=== PATIENT | male | born 1990 | race African-American/Black ===

== ENCOUNTER 2016-09-07 22:43 | Emergency (ER) | payer OTHER ==
[~2016-09-07] VITALS: Ht 177.8 cm; Wt 99.8 kg
[~2016-09-07 22:43] MED LIST: ALBUTEROL PO; ASPI81TA45 OR; LISI10TA4 OR; NORV5TAB OR; No Historical Meds; SPIR25TA2 OR
[2016-09-07] MEDS ORDERED: ATOR1TAB21 PO (23:02)
[2016-09-07] MEDS ORDERED: [UNRECOGNIZED DRUG - REMARK] (23:02)
[2016-09-07] MEDS ORDERED: ASPIRIN 325 MG TAB PO ONE (23:30)
[2016-09-07 23:36] LABS: BASO % 0.4 % (0.0-1.0); EOS % 0.5 % (0.0-3.0); LARGE UNSTAINED CELL # 0.1 K/mm3 (0.0-0.4); LARGE UNSTAINED CELL % 2.9 % (0.0-4.0); LYMPH # 1.6 K/mm3 (1.5-6.5); MEAN CORPUSCULAR HEMOGLOBIN 27.7 pg (27.0-33.0); MEAN CORPUSCULAR HGB CONC 33.7 g/dl (32.0-36.5); MEAN CORPUSCULAR VOLUME 82.1 fl (80.0-96.0); MONO # 0.4 K/mm3 (0.0-0.8); MONO % 7.4 % (0.0-5.0); NEUTROPHILS # 2.9 K/mm3 (1.8-7.7); NEUTROPHILS % 58.8 % (36.0-66.0); PLATELET COUNT, AUTOMATED 235 k/mm3 (150-450); RED CELL DISTRIBUTION WIDTH 12.5 % (11.5-14.5)
[2016-09-07 23:38] LABS: INR 0.99
[2016-09-07 23:43] LABS: ABG BASE EXCESS 3.1 (-2.0-2.0); ABG HCO3 26.1 MEQ/L (22.0-26.0); ABG PARTIAL PRESSURE CO2 35.2 mmHg (35.0-45.0); ABG PARTIAL PRESSURE O2 109.1 mmHg (75.0-100.0); ABG STANDARD HCO3 27.2 MEQ/L (22.0-26.0); ABG TOTAL CO2 27.2 MEQ/L (22.0-29.0); ABG pH (ARTERIAL) 7.488 UNITS (7.350-7.450)
[2016-09-07 23:47] LABS: ALBUMIN 4.2 GM/DL (3.2-5.2); ALBUMIN/GLOBULIN RATIO 1.08 (1.00-1.93); BILIRUBIN,DIRECT 0.3 MG/DL (0.0-0.2); BILIRUBIN,TOTAL 1.9 MG/DL (0.2-1.0); TOTAL PROTEIN 8.1 GM/DL (6.4-8.2)
[2016-09-07 23:50] LABS: ANION GAP 5 MEQ/L (8-16); BLOOD UREA NITROGEN 13 MG/DL (7-18); CARBON DIOXIDE LEVEL 36 MEQ/L (21-32); CHLORIDE LEVEL 97 MEQ/L (98-107); CREATININE FOR GFR 1.14 MG/DL (0.70-1.30); GLOMERULAR FILTRATION RATE > 60.0 (>60); GLUCOSE, FASTING 93 MG/DL (70-105); SODIUM LEVEL 138 MEQ/L (136-145)
[2016-09-08] MEDS ORDERED: ISOVUE-370 76% 100ML VIAL (Q9967) As Ordered ONE (00:50)
--- NOTE | 2016-09-08 01:40 | REPUSA ---
CT angiogram of the chest Clinical statement: Dyspnea. Technique: Multiple axial CT images were obtained from the thoracic inlet through the upper abdomen a fter a bolus administration of nonionic intravenous contrast. Coronal and sagittal reconstructions we re also obtained. Comparison: 07/06/2008. Findings: The pulmonary arteries are well-opacified with contrast, with no intraluminal filling defec ts to suggest embolism. The thoracic aorta is unremarkable. Thyroid gland is within normal limits. Th ere is no thoracic lymphadenopathy. There are no pericardial or pleural effusions. The lungs are summer r. Limited imaging of the upper abdomen is unremarkable. There are no suspicious osseous lesions. Impression: Unremarkable CT examination of the chest. No evidence of pulmonary embolism.
[2016-09-08 03:35] LABS: METHADONE URINE NEGATIVE (NEGATIVE)
[2016-09-08] MEDS ORDERED: cloNIDine 0.2 MG TAB PO ONE (03:45)
[2016-09-08 03:49] VITALS: BP 178/109
[2016-09-08] MEDS ORDERED: GI COCKTAIL 50ML BTL(HYOSCYAMINE/MAALOX/LIDOCAINE VISCOUS)(1:3:1) As Ordered ONE (03:52)
[2016-09-08] MEDS ORDERED: GI COCKTAIL 50ML BTL(HYOSCYAMINE/MAALOX/LIDOCAINE VISCOUS)(1:3:1) PO ONE (04:00)
[2016-09-08 04:32] VITALS: BP 158/95
--- NOTE | 2016-09-08 08:38 | ECGEPIP ---
Stationary ECG Study [facility] - ED Test Date: 2016-09-07 Pat Name: MARQUIS GILLIAM Department: Room: - Gender: M Belt Notcher: sun : 1990 Requested By: MATILDA ERWIN Order Number: [id number] Reading MD: Tara Rinaldi Measurements Intervals [place] Rate: 78 P: 39 ND: 140 QRS: 50 QRSD: 89 T: -23 QT: 342 QTc: 392 Interpretive Statements SINUS RHYTHM NONSPECIFIC ST & T-WAVE ABNORMALITY NO PRIOR FOR COMPARISON Electronically Signed On 09-08-2016 8:38:08 EDT by Tara Rinaldi
== END 2016-09-08 04:35 | disposition home or self-care (01) ==
LOC: M ED 23:39
DX: R07.89 Other chest pain (principal); R06.4 Hyperventilation; F12.10 Cannabis abuse, uncomplicated; I10 Essential (primary) hypertension; F17.200 Nicotine dependence, unspecified, uncomplicated; Z79.899 Other long term (current) drug therapy

== ENCOUNTER 2016-12-15 20:18 | Emergency (ER) | payer OTHER ==
[~2016-12-15] VITALS: Ht 177.8 cm; Wt 98.2 kg
[~2016-12-15 20:18] MED LIST changes: +ATOR1TAB21 PO; +[UNRECOGNIZED DRUG - REMARK]
[2016-12-15] MEDS ORDERED: LISI10TA4 PO (20:37)
[2016-12-15 21:56] VITALS: BP 163/104
--- NOTE | 2016-12-16 07:43 | REP ---
Clinical: Trauma. Technique: AP, lateral views of the right knee Findings: The osseous structures and joint spaces are intact and normal. There is no evidence for acute fracture or dislocation. No joint effusion is appreciated. Surrounding soft tissues are unremarkable. No subcutaneous emphysema or radiodense foreign body. Impression: No acute fracture or dislocation. Signed by Torito Arteaga MD 12/16/2016 07:35 A
== END 2016-12-15 22:10 | disposition home or self-care (01) ==
LOC: M ED 20:18
DX: S86.311A Strain of muscle(s) and tendon(s) of peroneal muscle group at lower leg level, right leg, initial encounter (principal); X50.1XXA Overexertion from prolonged static or awkward postures, initial encounter; Y92.89 Other specified places as the place of occurrence of the external cause; Y93.89 Activity, other specified; Y99.8 Other external cause status; I10 Essential (primary) hypertension; Z79.899 Other long term (current) drug therapy

== ENCOUNTER → 2016-12-30 | Outpatient (REF) | payer OTHER ==
[~2016-12-30] MED LIST changes: +LISI10TA4 PO
== END ==
LOC: M SFHCPLAZ 11:25
PROVIDERS: ATTEND Student in an Organized Health Care Education/Training Program
DX: R30.0 Dysuria (principal)

== ENCOUNTER → 2017-01-07 | Outpatient (CLI) | payer OTHER ==
[2017-01-07 15:47] LABS: ALBUMIN/GLOBULIN RATIO 1.05 (1.00-1.93); ALKALINE PHOSPHATASE 61 U/L (45-117); ALT/SGPT 41 U/L (12-78); ANION GAP 5 MEQ/L (8-16); AST/SGOT 29 U/L (15-37); BILIRUBIN,TOTAL 2.7 MG/DL (0.2-1.0); BLOOD UREA NITROGEN 12 MG/DL (7-18); CARBON DIOXIDE LEVEL 33 MEQ/L (21-32); CHLORIDE LEVEL 102 MEQ/L (98-107); CREATININE FOR GFR 1.04 MG/DL (0.70-1.30); GLOMERULAR FILTRATION RATE > 60.0 (>60); GLUCOSE, FASTING 79 MG/DL (70-105); POTASSIUM SERUM 3.4 MEQ/L (3.5-5.1); SODIUM LEVEL 140 MEQ/L (136-145); TOTAL PROTEIN 7.8 GM/DL (6.4-8.2)
== END ==
LOC: M LAB 12:37
PROVIDERS: ATTEND Student in an Organized Health Care Education/Training Program
DX: I10 Essential (primary) hypertension (principal)

== ENCOUNTER 2020-03-27 13:10 | Emergency (ER) | payer MEDICAID, OTHER ==
[~2020-03-27] VITALS: Ht 177.8 cm; Wt 108.4 kg
[2020-03-27] MEDS ORDERED: EZET10TA21 PO (13:32)
[2020-03-27] MEDS ORDERED: DOCU100C16 PO (13:32)
[2020-03-27] MEDS ORDERED: ASPI81CH33 PO (13:32)
[2020-03-27 14:48] LABS: BASO % 0.7 % (0.0-1.0); EOS # 0.1 10^3/uL (0.0-0.5); EOS % 2.8 % (0.0-3.0); HEMATOCRIT 48.1 % (42.0-52.0); HEMOGLOBIN 15.9 g/dl (13.5-17.5); LYMPH # 1.5 10^3/uL (1.5-5.0); LYMPH % 34.9 % (24.0-44.0); MEAN CORPUSCULAR HGB CONC 33.1 g/dl (32.0-36.5); MEAN CORPUSCULAR VOLUME 81.8 fl (80.0-96.0); MONO # 0.4 10^3/uL (0.0-0.8); MONO % 8.7 % (0.0-5.0); NEUTROPHILS # 2.3 10^3/uL (1.5-8.5); NEUTROPHILS % 52.7 % (36.0-66.0); PLATELET COUNT, AUTOMATED 236 10^3/uL (150-450); RED BLOOD COUNT 5.88 10^6/uL (4.30-6.10); WHITE BLOOD COUNT 4.3 10^3/uL (4.0-10.0)
[2020-03-27 15:13] LABS: ALBUMIN 4.7 GM/DL (3.2-5.2); ALT/SGPT 32 U/L (12-78); BILIRUBIN,DIRECT 0.2 MG/DL (0.0-0.2); BILIRUBIN,TOTAL 1.5 MG/DL (0.2-1.0); BLOOD UREA NITROGEN 11 MG/DL (7-18); CARBON DIOXIDE LEVEL 35 MEQ/L (21-32); CHLORIDE LEVEL 103 MEQ/L (98-107); GLOMERULAR FILTRATION RATE > 60.0 (>60); GLUCOSE, FASTING 85 MG/DL (70-100); LIPASE 122 U/L (73-393); POTASSIUM SERUM 3.7 MEQ/L (3.5-5.1); SODIUM LEVEL 139 MEQ/L (136-145); TOTAL PROTEIN 8.7 GM/DL (6.4-8.2)
[2020-03-27] MEDS ORDERED: ONDANSETRON 4MG/2ML VIAL IV ONE (15:45)
[2020-03-27] MEDS ORDERED: NS 1,000 ML IV ONE (15:45)
[2020-03-27] MEDS ORDERED: KETOROLAC 30 MG/ML 1ML VIAL IV ONE (15:45)
[2020-03-27] MEDS ORDERED: ISOVUE-370 76% 100ML VIAL As Ordered ONE (15:50)
--- NOTE | 2020-03-27 16:26 | REP ---
INDICATION: bilateral flank, LLQ pain COMPARISON: None. TECHNIQUE: CT Scan of the abdomen and pelvis was performed with intravenous administration of 100 cc of Isovue 370, without oral contrast. FINDINGS: Lung bases: Unremarkable. Liver: Normal Gallbladder: Unremarkable. Spleen: Normal. Adrenals: Normal. Pancreas: Normal. Kidneys: Normal. Small and large bowel: Unremarkable. Free fluid: None. Abdominal aorta: No aneurysm or dissection. Adenopathy: None. Appendix: Not inflamed. Osseous structures: Unremarkable. Pelvis: No mass. IMPRESSION: Negative CT abdomen and pelvis. <Electronically signed by Elliot English > 03/27/20 [id number]
[2020-03-27 17:22] VITALS: BP 151/98
== END 2020-03-27 17:24 | disposition home or self-care (01) ==
LOC: M ED 13:10
DX: R10.9 Unspecified abdominal pain (principal); R10.32 Left lower quadrant pain; I10 Essential (primary) hypertension; Z98.61 Coronary angioplasty status; F17.200 Nicotine dependence, unspecified, uncomplicated; Z79.82 Long term (current) use of aspirin; Z79.899 Other long term (current) drug therapy
CPT/HCPCS: 74177; 80048; 80076; 81001; 83690; 85025; 96361; 96374; 96375; 99284; J1885; J2405; Q9967

== ENCOUNTER 2020-04-12 23:08 | Emergency (ER) | payer MEDICAID ==
[~2020-04-12] VITALS: Ht 177.8 cm; Wt 104.5 kg
[~2020-04-12 23:08] MED LIST changes: +ASPI81CH33 PO; +DOCU100C16 PO; +EZET10TA21 PO
[2020-04-12] MEDS ORDERED: METO1TAB32 PO (23:20)
[2020-04-13 02:33] VITALS: BP 112/53
[2020-04-13] MEDS ORDERED: KETO10TAB PO (05:11)
[2020-04-13] MEDS ORDERED: AUGM875T28 PO (05:11)
[2020-04-13] MEDS ORDERED: KETOROLAC 30 MG/ML 1ML VIAL IM ONE (05:15)
[2020-04-13] MEDS ORDERED: AUGMENTIN 875 MG TAB PO ONE (05:15)
== END 2020-04-13 05:41 | disposition home or self-care (01) ==
LOC: M ED 23:08
DX: K04.7 Periapical abscess without sinus (principal); E78.00 Pure hypercholesterolemia, unspecified; I10 Essential (primary) hypertension; Z79.899 Other long term (current) drug therapy; Z79.82 Long term (current) use of aspirin

== ENCOUNTER → 2020-06-23 | Outpatient (CLI) | payer MEDICAID, OTHER ==
[~2020-06-23] MED LIST changes: +AUGM875T28 PO; +KETO10TAB PO; +LISI10TA22 PO; -LISI10TA4 PO; +METO1TAB32 PO
[2020-06-23 13:11] LABS: ALBUMIN 4.5 GM/DL (3.2-5.2); ALT/SGPT 42 U/L (12-78); BILIRUBIN,TOTAL 0.8 MG/DL (0.2-1.0); BLOOD UREA NITROGEN 17 MG/DL (7-18); CALCIUM LEVEL 10.2 MG/DL (8.5-10.1); CARBON DIOXIDE LEVEL 37 MEQ/L (21-32); CHLORIDE LEVEL 99 MEQ/L (98-107); CREATININE FOR GFR 1.26 MG/DL (0.70-1.30); GLOMERULAR FILTRATION RATE > 60.0 (>60); GLUCOSE, FASTING 104 MG/DL (70-100); POTASSIUM SERUM 3.2 MEQ/L (3.5-5.1); SODIUM LEVEL 139 MEQ/L (136-145); TOTAL PROTEIN 8.3 GM/DL (6.4-8.2)
== END ==
LOC: M WUC 11:11
PROVIDERS: ATTEND Nurse Practitioner Family
DX: E87.6 Hypokalemia (principal)

== ENCOUNTER → 2020-08-06 | Outpatient (CLI) | payer OTHER | LOC: M LABSMTC 10:10 | PROVIDERS: ATTEND Anesthesiology | DX: Z01.818 Encounter for other preprocedural examination (principal); Z11.52 Encounter for screening for COVID-19 ==

== ENCOUNTER 2020-08-11 07:50 | Day surgery (SDC) | payer OTHER ==
[~2020-08-11] VITALS: Ht 177.8 cm; Wt 103.3 kg
[~2020-08-11 07:50] MED LIST changes: +ASPI81TA26 PO; +CHLO125TA PO; +DOK1CAP7 PO; +LIDOCAINE 2% 100MG/5ML SDV (FOR ANES.) As Ordered ONE; +MIRA3350 PO; +NS 1,000 ML IV ONE; +OMEP-221 PO; +propofoL 200 MG/20 ML VIAL As Ordered ONE
[2020-08-11] MEDS ORDERED: fentaNYL 100 MCG/2 ML INJECTION (J3010) As Ordered ONE (09:09)
--- NOTE | 2020-08-11 09:24 | ROOR ---
Patient Name: Marquis Jolley Procedure Date: 08/11/2020 8:50 AM Date of : 1990 Age: 30 Room: [facility] Gender: Male Note Status: Finalized Procedure: Colonoscopy Indications: Hematochezia, Change in bowel habits Providers: Gamal Chambers MD Referring MD: Alice BEAR Requesting Provider: Medicines: Monitored Anesthesia Care Complications: No immediate complications. Procedure: Pre-Anesthesia Assessment: - Prior to the procedure, a History and Physical was performed, and patient medications and allergies were reviewed. The patient is competent. The risks and benefits of the procedure and the sedation options and risks were discussed with the patient. All questions were answered and informed consent was obtained. Patient identification and proposed procedure were verified by the physician, the nurse and the anesthesiologist in the procedure room. Mental Status Examination: normal. Airway Examination: normal oropharyngeal airway and neck mobility. Respiratory Examination: clear to auscultation. CV Examination: normal. Prophylactic Antibiotics: The patient does not require prophylactic antibiotics. Prior Anticoagulants: The patient has taken no previous anticoagulant or antiplatelet agents. ASA Grade Assessment: II - A patient with mild systemic disease. After reviewing the risks and benefits, the patient was deemed in satisfactory condition to undergo the procedure. The anesthesia plan was to use monitored anesthesia care (MAC). Immediately prior to administration of medications, the patient was re-assessed for adequacy to receive sedatives. The heart rate, respiratory rate, oxygen saturations, blood pressure, adequacy of pulmonary ventilation, and response to care were monitored throughout the procedure. The physical status of the patient was re-assessed after the procedure. The Colonoscope was introduced through the anus and advanced to the terminal ileum, with identification of the appendiceal orifice and IC valve. The colonoscopy was performed without difficulty. The patient tolerated the procedure well. The quality of the bowel preparation was good. The terminal ileum, ileocecal valve, appendiceal orifice, and rectum were photographed. Scope insertion time was 2 minutes. Scope withdrawal time was 8 minutes. The total duration of the procedure was 10 minutes. Findings: The perianal and digital rectal examinations were normal. The terminal ileum appeared normal. Scattered and patchy mild inflammation characterized by erythema and granularity was found in the sigmoid colon. Biopsies were taken with a cold forceps for histology. Verification of patient identification for the specimen was done by the physician and nurse using the patient's name, date and medical record number. Estimated blood loss was minimal. Non-bleeding external and internal hemorrhoids were found during retroflexion. The hemorrhoids were large. Impression: - The examined portion of the ileum was normal. - Scattered and patchy mild inflammation was found in the sigmoid colon secondary to colitis. Biopsied. - Non-bleeding external and internal hemorrhoids. Recommendation: - Patient has a contact number available for emergencies. The signs and symptoms of potential delayed complications were discussed with the patient. Return to normal activities tomorrow. Written discharge instructions were provided to the patient. - High fiber diet. - Continue present medications. - Use fiber, for example Citrucel, Fibercon, Konsyl or Metamucil. - Preparation H suppository: Insert rectally daily for 5 days. - Await pathology results. - Repeat colonoscopy at age 48 for screening purposes. - Telephone GI clinic for pathology results in 2 weeks. - Return to primary care physician. Procedure Code(s): --- Professional --- 12635, Colonoscopy, flexible; with biopsy, single or multiple Diagnosis Code(s): --- Professional --- K64.8, Other hemorrhoids K52.9, Noninfective gastroenteritis and colitis, unspecified K92.1, Melena (includes Hematochezia) R19.4, Change in bowel habit CPT copyright 2019 [employer]. All rights reserved. The codes documented in this report are preliminary and upon digital editor review may be revised to meet current compliance requirements. Gamal Chambers MD Gamal Chambers MD 08/11/2020 9:24:22 AM Electronically signed by Gamal Chambers MD Number of Addenda: 0 Note Initiated On: 08/11/2020 8:50 AM Estimated Blood Loss: Estimated blood loss was minimal.
[2020-08-11 09:45] VITALS: BP 134/87
== END 2020-08-11 09:58 | disposition home or self-care (01) ==
LOC: M OPP 07:50
PROVIDERS: ATTEND Internal Medicine Gastroenterology
DX: K64.8 Other hemorrhoids (principal); R19.4 Change in bowel habit; K92.1 Melena; F17.210 Nicotine dependence, cigarettes, uncomplicated; Z79.82 Long term (current) use of aspirin; Z79.899 Other long term (current) drug therapy
CPT/HCPCS: 45380; 88305; J3010

== ENCOUNTER → 2021-03-19 | Outpatient (CLI) | payer OTHER ==
[~2021-03-19] MED LIST changes: +DOK1CAP4 PO; -DOK1CAP7 PO; -LIDOCAINE 2% 100MG/5ML SDV (FOR ANES.) As Ordered ONE; -NS 1,000 ML IV ONE; -propofoL 200 MG/20 ML VIAL As Ordered ONE
== END ==
LOC: M LABSMTC 13:58
PROVIDERS: ATTEND Family Medicine
DX: U07.1 COVID-19 (principal)
CPT/HCPCS: C9803; U0003

== ENCOUNTER → 2022-10-15 | Outpatient (CLI) | payer OTHER ==
[~2022-10-15] MED LIST changes: -OMEP-221 PO; +OMEP40CA5 PO
[2022-10-15 12:07] LABS: BASO % 0.5 % (0.0-1.0); EOS # 0.1 10^3/uL (0.0-0.5); EOS % 2.1 % (0.0-3.0); HEMATOCRIT 46.2 % (42.0-52.0); HEMOGLOBIN 15.8 g/dl (13.5-17.5); LYMPH # 2.3 10^3/uL (1.5-5.0); LYMPH % 40.6 % (24.0-44.0); MEAN CORPUSCULAR HEMOGLOBIN 27.9 pg (27.0-33.0); MEAN CORPUSCULAR HGB CONC 34.2 g/dl (32.0-36.5); MEAN CORPUSCULAR VOLUME 81.5 fl (80.0-96.0); MONO # 0.5 10^3/uL (0.0-0.8); MONO % 8.6 % (2.0-8.0); NEUTROPHILS # 2.7 10^3/uL (1.5-8.5); PLATELET COUNT, AUTOMATED 308 10^3/uL (150-450); RED BLOOD COUNT 5.67 10^6/uL (4.30-6.10); WHITE BLOOD COUNT 5.7 10^3/uL (4.0-10.0)
[2022-10-15 12:22] LABS: APPEARANCE, URINE CLEAR (CLEAR); BACTERIA, URINE AUTO NEGATIVE (NEGATIVE); BILIRUBIN, URINE AUTO NEGATIVE (NEGATIVE); BLOOD, URINE BLOOD NEGATIVE (NEGATIVE); COLOR, URINE YELLOW (YELLOW); GLUCOSE, URINE (UA) AUTO NEGATIVE (NEGATIVE); KETONE, URINE AUTO NEGATIVE (NEGATIVE); LEUKOCYTE ESTERASE, URINE AUTO NEGATIVE (NEGATIVE); MUCUS, URINE SMALL (NEGATIVE); NITRITE, URINE AUTO NEGATIVE (NEGATIVE); PROTEIN, URINE AUTO 1+ mg/dL (NEGATIVE); RBC, URINE AUTO 0 /HPF (0-3); SPECIFIC GRAVITY URINE AUTO 1.023 (1.002-1.035); SQUAMOUS EPITHELIAL CELL UR AU 0 /HPF (0-6); WBC, URINE AUTO 3 /HPF (0-3)
[2022-10-15 12:38] LABS: HEMOGLOBIN A1c 4.6 % (4.0-6.0)
[2022-10-15 12:39] LABS: IRON (FE) 80 UG/DL (65-175); PERCENT SATURATION 22.7 % (19.7-50.0); TOTAL IRON BINDING CAPACITY 353 UG/DL (250-425)
[2022-10-15 12:48] LABS: ALBUMIN 4.2 G/DL (3.2-5.2); ALKALINE PHOSPHATASE 80 U/L (46-116); ALT/SGPT 40 U/L (7.0-40); AST/SGOT 27 U/L (<34); BILIRUBIN,TOTAL 2.5 MG/DL (0.3-1.2); BLOOD UREA NITROGEN 13 MG/DL (9-23); CALCIUM LEVEL 10.3 MG/DL (8.5-10.1); CARBON DIOXIDE LEVEL 33 MMOL/L (20-31); CHLORIDE LEVEL 103 MMOL/L (98-107); CHOLESTEROL LEVEL 240 MG/DL (<200); CHOLESTEROL RISK RATIO 4.66 (<5); CREATININE FOR GFR 0.97 MG/DL (0.70-1.30); FERRITIN 175.7 NG/ML (10.5-307.3); FOLATE 16.4 NG/ML (>5.4); FREE T4 1.18 NG/DL (0.89-1.76); GLOMERULAR FILTRATION RATE > 60.0 (>60); GLUCOSE, FASTING 87 MG/DL (60-100); HDL CHOLESTEROL 51.5 MG/DL (>40); LDL CHOLESTEROL 164.3 MG/DL (<100); NON-HDL-C 188.5 MG/DL; POTASSIUM SERUM 3.1 MMOL/L (3.5-5.1); SODIUM LEVEL 138 MMOL/L (136-145); THYROID STIMULATING HORMONE 1.027 uIU/ML (0.55-4.78); TOTAL 25(OH) VITAMIN D 11.1 NG/ML (20.0-100.0); TOTAL PROTEIN 7.5 G/DL (5.7-8.2); TRIGLYCERIDES LEVEL 121 MG/DL (<150); VITAMIN B12 LEVEL 516 PG/ML (211-911)
== END ==
LOC: M LAB 11:23
PROVIDERS: ATTEND Physician Assistant
DX: F41.9 Anxiety disorder, unspecified (principal)

== ENCOUNTER → 2022-12-05 | Outpatient (CLI) | payer OTHER ==
[2022-12-05 18:00] LABS: ALBUMIN 4.1 G/DL (3.2-5.2); ALKALINE PHOSPHATASE 100 U/L (46-116); ALT/SGPT 70 U/L (7.0-40); AST/SGOT 32 U/L (<34); BILIRUBIN,DIRECT 0.5 MG/DL (<0.4); BILIRUBIN,TOTAL 1.6 MG/DL (0.3-1.2); BLOOD UREA NITROGEN 14 MG/DL (9-23); CALCIUM LEVEL 9.7 MG/DL (8.5-10.1); CARBON DIOXIDE LEVEL 35 MMOL/L (20-31); CHLORIDE LEVEL 102 MMOL/L (98-107); CREATININE FOR GFR 0.93 MG/DL (0.70-1.30); GLOMERULAR FILTRATION RATE > 60.0 (>60); GLUCOSE, FASTING 102 MG/DL (60-100); MAGNESIUM LEVEL 1.7 MG/DL (1.8-2.4); POTASSIUM SERUM 3.1 MMOL/L (3.5-5.1); SODIUM LEVEL 143 MMOL/L (136-145); TOTAL PROTEIN 7.3 G/DL (5.7-8.2)
== END ==
LOC: M LAB 16:30
PROVIDERS: ATTEND Physician Assistant
DX: E87.6 Hypokalemia (principal); E80.6 Other disorders of bilirubin metabolism

== ENCOUNTER → 2023-02-14 | Day surgery (SDC) | payer OTHER ==
[~2023-02-14] VITALS: Ht 177.8 cm; Wt 110.2 kg
[~2023-02-14] MED LIST changes: +AMLO1TAB24 PO; +ATOR80TA59 PO; +HYDR-3363 PO; +LIDOCAINE 2% 100MG/5ML SDV (FOR ANES.) As Ordered ONE; +METO1TAB87 PO; +MULT-90 PO; +NS 1,000 ML IV ONE; +SERT50TA29 PO; +fentaNYL 100 MCG/2 ML INJECTION As Ordered ONE; +propofoL 200 MG/20 ML VIAL As Ordered ONE
[2023-02-14 15:21] VITALS: TEMP 96.4
[2023-02-14 15:43] VITALS: BP 142/81; O2SAT 99
== END | disposition home or self-care (01) ==
LOC: M OPP 13:29
PROVIDERS: ATTEND Internal Medicine Gastroenterology
DX: K29.70 Gastritis, unspecified, without bleeding (principal); K20.90 Esophagitis, unspecified without bleeding; K44.9 Diaphragmatic hernia without obstruction or gangrene; F17.200 Nicotine dependence, unspecified, uncomplicated; Z79.02 Long term (current) use of antithrombotics/antiplatelets; Z79.82 Long term (current) use of aspirin; Z79.899 Other long term (current) drug therapy
CPT/HCPCS: 43239; 88305; J3010

== ENCOUNTER 2024-01-10 02:15 | Emergency (ER) | payer OTHER ==
[~2024-01-10] VITALS: Ht 177.8 cm; Wt 109.1 kg
[~2024-01-10 02:15] MED LIST changes: -LIDOCAINE 2% 100MG/5ML SDV (FOR ANES.) As Ordered ONE; -NS 1,000 ML IV ONE; -fentaNYL 100 MCG/2 ML INJECTION As Ordered ONE; -propofoL 200 MG/20 ML VIAL As Ordered ONE
[2024-01-10 02:58] LABS: HEMOGLOBIN 16.2 g/dl (13.5-17.5); MEAN CORPUSCULAR HEMOGLOBIN 28.6 pg (27.0-33.0); MEAN CORPUSCULAR HGB CONC 33.8 g/dl (32.0-36.5); MEAN CORPUSCULAR VOLUME 84.7 fl (80.0-96.0); PLATELET COUNT, AUTOMATED 293 10^3/uL (150-450); RED BLOOD COUNT 5.67 10^6/uL (4.30-6.10); WHITE BLOOD COUNT 5.4 10^3/uL (4.0-10.0)
[2024-01-10] MEDS: METOPROLOL TART 25 MG TABLET PO ONE (03:02)
[2024-01-10 03:03] VITALS: BP 198/105
[2024-01-10] MEDS: amLODIPine 5 MG TAB PO ONE (03:03)
[2024-01-10 03:28] LABS: AMPHETAMINES LEVEL URINE NEGATIVE (NEGATIVE); BARBITURATES URINE NEGATIVE (NEGATIVE); BENZODIAZEPINES URINE NEGATIVE (NEGATIVE); COCAINE METABOLITE URINE NEGATIVE (NEGATIVE); METHADONE URINE NEGATIVE (NEGATIVE); OPIATES URINE NEGATIVE (NEGATIVE); PHENCYCLIDINE URINE NEGATIVE (NEGATIVE)
[2024-01-10 03:29] LABS: CANNABINOIDS URINE POSITIVE (NEGATIVE)
[2024-01-10 03:36] LABS: ETHYL ALCOHOL (ETHANOL) 0.254 % (0.000-0.010)
[2024-01-10 03:38] LABS: SALICYLATE LEVEL < 3.0 MG/DL (<30)
[2024-01-10 03:39] LABS: ALBUMIN 4.2 G/DL (3.2-5.2); ALKALINE PHOSPHATASE 88 U/L (46-116); ALT/SGPT 44 U/L (7.0-40); AST/SGOT 35 U/L (<34); BILIRUBIN,DIRECT 0.3 MG/DL (<0.4); BLOOD UREA NITROGEN 13 MG/DL (9-23); CALCIUM LEVEL 9.5 MG/DL (8.5-10.1); CARBON DIOXIDE LEVEL 29 MMOL/L (20-31); CHLORIDE LEVEL 106 MMOL/L (98-107); CREATININE FOR GFR 1.12 MG/DL (0.70-1.30); GLOMERULAR FILTRATION RATE > 60.0 (>60); GLUCOSE, FASTING 95 MG/DL (60-100); POTASSIUM SERUM 3.1 MMOL/L (3.5-5.1); SODIUM LEVEL 142 MMOL/L (136-145)
[2024-01-10 03:41] LABS: THYROID STIMULATING HORMONE 0.856 uIU/ML (0.55-4.78)
[2024-01-10] MEDS ORDERED: MED REC CURRENTLY UNOBTAINABLE XX SCH (05:30)
[2024-01-10 12:56] VITALS: BP 117/87; TEMP 98; O2SAT 97
== END 2024-01-10 12:58 | disposition home or self-care (01) ==
LOC: M ED 02:15
DX: F10.120 Alcohol abuse with intoxication, uncomplicated (principal); Z79.1 Long term (current) use of non-steroidal anti-inflammatories (NSAID); Z79.810 Long term (current) use of selective estrogen receptor modulators (SERMs); Z79.899 Other long term (current) drug therapy

== ENCOUNTER 2024-11-17 18:45 | Emergency (ER) | payer OTHER, SELFPAY ==
[~2024-11-17] VITALS: Ht 177.8 cm; Wt 102.7 kg
[2024-11-17 19:15] LABS: BASO # 0.0 10^3/uL (0.0-0.2); BASO % 0.5 % (0.0-1.0); EOS # 0.2 10^3/uL (0.0-0.5); EOS % 3.5 % (0.0-3.0); LYMPH # 2.0 10^3/uL (1.5-5.0); LYMPH % 35.4 % (24.0-44.0); MONO # 0.6 10^3/uL (0.0-0.8); MONO % 9.7 % (2.0-8.0); NEUTROPHILS # 2.9 10^3/uL (1.5-8.5); NEUTROPHILS % 50.7 % (36.0-66.0); PLATELET COUNT, AUTOMATED 284 10^3/uL (150-450)
[2024-11-17 19:44] LABS: CPK CREATINE PHOSPHOKINASE 266.0 U/L (46-171)
[2024-11-17 19:45] LABS: ALT/SGPT 40.0 U/L (7.0-40); AST/SGOT 31.0 U/L (<34); CALCIUM LEVEL 9.1 MG/DL (8.5-10.1); CARBON DIOXIDE LEVEL 32.0 MMOL/L (20-31); CHLORIDE LEVEL 102.0 MMOL/L (98-107); CK-MB VALUE MASS 1.3 NG/ML (<3.6); CREATININE FOR GFR 1.32 MG/DL (0.70-1.30); GLOMERULAR FILTRATION RATE 71.7 (>60); MB/CK RELATIVE INDEX 0.48 (< OR =4); POTASSIUM SERUM 3.3 MMOL/L (3.5-5.1); SODIUM LEVEL 142.0 MMOL/L (136-145)
[2024-11-17 19:47] LABS: FREE T4 1.11 NG/DL (0.89-1.76)
[2024-11-18 00:46] LABS: CK-MB VALUE MASS 1.1 NG/ML (<3.6)
[2024-11-18 00:47] LABS: CPK CREATINE PHOSPHOKINASE 252.0 U/L (46-171); MB/CK RELATIVE INDEX 0.43 (< OR =4)
[2024-11-18 01:34] VITALS: BP 150/84; TEMP 97.3; O2SAT 99
== END 2024-11-18 01:35 | disposition home or self-care (01) ==
LOC: M ED 18:45
DX: R07.9 Chest pain, unspecified (principal); R00.0 Tachycardia, unspecified; Z79.1 Long term (current) use of non-steroidal anti-inflammatories (NSAID); Z79.899 Other long term (current) drug therapy; Z79.810 Long term (current) use of selective estrogen receptor modulators (SERMs)

== ENCOUNTER 2025-01-17 06:04 | Emergency (ER) | payer SELFPAY ==
[~2025-01-17] VITALS: Ht 177.8 cm; Wt 103.0 kg
[~2025-01-17 06:04] MED LIST changes: -EZET10TA21 PO; +EZET10TA57 PO
[2025-01-17 06:18] VITALS: BP 165/109; TEMP 98.1; O2SAT 97
== END 2025-01-17 06:55 | disposition left against medical advice (07) ==
LOC: M ED 06:04
DX: S19.9XXA Unspecified injury of neck, initial encounter (principal); Y92.9 Unspecified place or not applicable; Y93.9 Activity, unspecified; Y99.9 Unspecified external cause status; V49.40XA Driver injured in collision with unspecified motor vehicles in traffic accident, initial encounter; Z79.1 Long term (current) use of non-steroidal anti-inflammatories (NSAID); Z79.899 Other long term (current) drug therapy; Z79.810 Long term (current) use of selective estrogen receptor modulators (SERMs); Z53.9 Procedure and treatment not carried out, unspecified reason

== ENCOUNTER 2025-03-04 03:45 | Emergency (ER) | payer MEDICAID ==
[2025-03-04 04:39] LABS: PLATELET COUNT, AUTOMATED 290 10^3/uL (150-450)
[2025-03-04 04:58] LABS: AMPHETAMINES LEVEL URINE NEGATIVE (NEGATIVE); BARBITURATES URINE NEGATIVE (NEGATIVE); METHADONE URINE NEGATIVE (NEGATIVE); OPIATES URINE NEGATIVE (NEGATIVE); PHENCYCLIDINE URINE NEGATIVE (NEGATIVE)
[2025-03-04 05:02] LABS: ETHYL ALCOHOL (ETHANOL) 0.217 % (0.000-0.010)
[2025-03-04 05:03] LABS: ALT/SGPT 58 U/L (7.0-40); AST/SGOT 48 U/L (<34); CALCIUM LEVEL 9.8 MG/DL (8.5-10.1); CARBON DIOXIDE LEVEL 29 MMOL/L (20-31); CHLORIDE LEVEL 105 MMOL/L (98-107); CREATININE FOR GFR 1.19 MG/DL (0.70-1.30); GLOMERULAR FILTRATION RATE 81.2 (>60); POTASSIUM SERUM 3.4 MMOL/L (3.5-5.1); SALICYLATE LEVEL < 3.0 MG/DL (<30); SODIUM LEVEL 144 MMOL/L (136-145)
[2025-03-04 05:07] LABS: BENZODIAZEPINES URINE POSITIVE (NEGATIVE); CANNABINOIDS URINE POSITIVE (NEGATIVE); COCAINE METABOLITE URINE POSITIVE (NEGATIVE)
[2025-03-04] MEDS: IBUPROFEN 400 MG TAB PO ONE (10:24)
[2025-03-04 11:20] VITALS: BP 164/89; TEMP 98.4; O2SAT 100
== END 2025-03-04 11:37 | disposition home or self-care (01) ==
LOC: M ED 03:45
DX: F10.120 Alcohol abuse with intoxication, uncomplicated (principal); K21.9 Gastro-esophageal reflux disease without esophagitis; F17.210 Nicotine dependence, cigarettes, uncomplicated; F12.10 Cannabis abuse, uncomplicated; Z79.1 Long term (current) use of non-steroidal anti-inflammatories (NSAID); Z79.899 Other long term (current) drug therapy; Z79.810 Long term (current) use of selective estrogen receptor modulators (SERMs)